=== PATIENT | female | born 1955 | race Caucasian/White ===

== ENCOUNTER → 2020-12-14 13:45 | Outpatient (CLI) | payer MEDICARE | END | disposition home or self-care (01) | LOC: D.US 12-12 15:00 | PROVIDERS: ATTEND Family Medicine | DX: I73.9 Peripheral vascular disease, unspecified (principal) ==

== ENCOUNTER → 2020-12-26 14:45 | Outpatient (CLI) | payer MEDICARE | END | disposition home or self-care (01) | LOC: D.RAD 14:45 | PROVIDERS: ATTEND Family Medicine | DX: M20.62 Acquired deformities of toe(s), unspecified, left foot (principal) ==

== ENCOUNTER 2021-03-04 06:33 | Inpatient (IN) | payer MEDICARE, MEDICAID ==
[~2021-03-04] VITALS: Ht 175.3 cm; Wt 63.5 kg
[2021-03-04] MEDS ORDERED: LISINOPRIL5 MG PO (06:47)
[2021-03-04] MEDS ORDERED: ZANAFLEX4 MG PO (06:48)
[2021-03-04] MEDS ORDERED: COREG6.25 MG PO (06:48)
[2021-03-04] MEDS ORDERED: NAPROSYN500 MG PO (06:48)
[2021-03-04] MEDS ORDERED: CELEXA10 MG PO (06:49)
--- NOTE | 2021-03-04 07:12 | NUR ---
REPORT TO MYNOR WATSON
--- NOTE | 2021-03-04 07:48 | NUR ---
PLACED A PIV IN LEFT HAND, 20G, 1 STICK, PATIENT TOLERATED WELL. CALL LIGHT WITHIN REACH AND BED IN LOWEST LOCKED POSITION. SIDE RAILS UP. PATIENT REQUESTED DEPENDS, GIVEN, PATIENT STATES THE NEXT TIME SHE GETS UP SHE WILL PUT THEM ON. PILLOW ALSO REQUESTED AND GIVEN.
[2021-03-04 07:54] LABS: CALC OSMOLALITY 243 mosm/kg (275-300); CALCIUM 8.1 mg/dL (8.5-10.1); CARBON DIOXIDE 24.6 mmol/L (21.0-32.0); CHLORIDE - SERUM 89 mmol/L (98-107); CREATININE - SERUM 0.8 mg/dL (0.6-1.3); GLUCOSE 151 mg/dL (74-106); POTASSIUM - SERUM 3.3 mmol/L (3.5-5.1); SODIUM 121 mmol/L (136-145); UREA NITROGEN 5 mg/dL (7-18); eGFR NON AFRICAN AMERICAN 76 mL/min (90-120)
[2021-03-04 07:58] LABS: BASOPHILS 0.6 % (0-2); EOSINOPHILS 2.6 % (0-7); HEMATOCRIT 29.4 % (36.0-48.0); HEMOGLOBIN 10.2 g/dL (12-16); LYMPHOCYTES 13.6 % (15-50); MCH 31.1 pg (26.0-34.0); MCHC 34.6 g/dL (31.0-37.0); MCV 89.8 fL (80.0-100.0); MEAN PLATELET VOLUME 6.5 fL (7.4-10.4); MONOCYTES 14.3 % (2-11); NEUTROPHILS 68.9 % (40-80); PLATELET COUNT 129 10x3/uL (130-400); RBC 3.27 10x6/uL (4.00-5.40)
[2021-03-04 07:59] LABS: ALBUMIN 2.7 g/dL (3.4-5.0); ALKALINE PHOSPHATASE 64 U/L (30-120); ALT (SGPT) 24 U/L (10-68); BILIRUBIN - TOTAL 0.57 mg/dL (0.2-1.3); PROTEIN - SERUM 6.5 g/dL (6.4-8.2)
--- NOTE | 2021-03-04 15:00 | NUR ---
RECEIVED TO ROOM 2227 VIA FROM ER. A/O X3. NO C/O AT THIS TIME. SKIN INTACT WITHOUT REDNESS. BRUISING NOTED TO LEFT SIDE OF FACE. DENIES NEEDS.
[2021-03-04 15:57] VITALS: BP 153/109; BMI 20.7
--- NOTE | 2021-03-04 19:41 | NUR ---
ATE ALL OF SUPPER. NO CHANGES NOTED. DENIES NEEDS.
[2021-03-04 20:00] VITALS: BP 163/82
--- NOTE | 2021-03-04 23:30 | NUR ---
I have reviewed this patient and I concur with the Shift Assessment completed by the Licensed Practical Nurse today this shift.
[2021-03-05] VITALS: BP 181/92
[2021-03-05 04:00] VITALS: BP 182/93
[2021-03-05 06:18] LABS: BASOPHILS 0.1 % (0-2); EOSINOPHILS 0 % (0-7); HEMATOCRIT 29.4 % (36.0-48.0); HEMOGLOBIN 10.2 g/dL (12-16); LYMPHOCYTES 12.1 % (15-50); MCH 31.8 pg (26.0-34.0); MCHC 34.7 g/dL (31.0-37.0); MCV 91.6 fL (80.0-100.0); MEAN PLATELET VOLUME 7.1 fL (7.4-10.4); MONOCYTES 7.7 % (2-11); NEUTROPHILS 80.1 % (40-80); PLATELET COUNT 139 10x3/uL (130-400); RBC 3.21 10x6/uL (4.00-5.40); RDW 17.5 % (11.5-14.5); WBC 5.5 10x3/uL (4.8-10.8)
[2021-03-05 06:51] LABS: ALBUMIN 2.8 g/dL (3.4-5.0); ANION GAP 13.6 mmol/L (8-16); BILIRUBIN - TOTAL 0.48 mg/dL (0.2-1.3); CALCIUM 7.8 mg/dL (8.5-10.1); CARBON DIOXIDE 23.7 mmol/L (21.0-32.0); CREATININE - SERUM 0.9 mg/dL (0.6-1.3); MAGNESIUM - SERUM 1.4 mg/dL (1.8-2.4); POTASSIUM - SERUM 3.3 mmol/L (3.5-5.1); PROTEIN - SERUM 6.5 g/dL (6.4-8.2)
--- NOTE | 2021-03-05 08:06 | NUR ---
AWAKE AND ALERT. ORIENTED X3. NO C/O AT THIS TIME. LUNGS ARE CLEAR BILATERALLY, NO COUGH NOTED. SKIN IS INTACT WITHOUT REDNESS BUT LARGE BRUISED AREAS NOTED TO LEFT SIDE OF FACE. IV TO LEFT HAND IS PATENT WITHOUT REDNESS AT INSERTION SITE. DENIES NEEDS.
[2021-03-05 08:27] VITALS: BP 156/82
--- NOTE | 2021-03-05 09:00 | NUR ---
ATE MOST OF BREAKFAST. TOOK AM MEDS WITHOUT DIFFICULTY. DENIES NEEDS.
--- NOTE | 2021-03-05 11:00 | NUR ---
UP TO BR PER SELF. DISCUSSED NEED TO CALL FOR ASSIST WITH AMBULATION. BED ALARM ON AT THIS TIME.
--- NOTE | 2021-03-05 12:30 | NUR ---
HAD A LIGHT LUNCH SERVED IN ROOM. ATE ALL OF TRAY.
[2021-03-05 13:02] VITALS: BP 142/85
--- NOTE | 2021-03-05 15:00 | NUR ---
SITTING UP IN BED WATCHING TV. DENIES NEEDS.
[2021-03-05 17:27] VITALS: BP 176/100
--- NOTE | 2021-03-05 19:43 | NUR ---
ATE MOST OF SUPPER UP TO BR WITH ONE PERSON SBA. VOIDED WITHOUT DIFFICULTY. DENIES NEEDS. NO CHANGES NOTED.
[2021-03-05 20:00] VITALS: BP 150/78
--- NOTE | 2021-03-05 21:00 | NUR ---
UP IN CHAIR AT BEDSIDE. PULLED IV OUT. RESITED TO RFA X 1 ATTEMPT. TOLERATED WELL. CONTINUES TO HAVE BRUISING AND EDEMA TO LEFT SIDE OF FACE. DENIES DISCOMFORT AT PRESENT.
[2021-03-06] VITALS: BP 175/87
--- NOTE | 2021-03-06 02:08 | NUR ---
I have reviewed this patient and I concur with the Shift Assessment completed by the Licensed Practical Nurse today this shift.
[2021-03-06 04:00] VITALS: BP 167/90
[2021-03-06 06:06] LABS: BASOPHILS 0.3 % (0-2); EOSINOPHILS 0 % (0-7); HEMATOCRIT 30.7 % (36.0-48.0); HEMOGLOBIN 10.2 g/dL (12-16); LYMPHOCYTES 14.1 % (15-50); MCHC 33.2 g/dL (31.0-37.0); MCV 93.5 fL (80.0-100.0); MEAN PLATELET VOLUME 7.1 fL (7.4-10.4); MONOCYTES 9.8 % (2-11); NEUTROPHILS 75.8 % (40-80); PLATELET COUNT 162 10x3/uL (130-400); RBC 3.28 10x6/uL (4.00-5.40); RDW 17.9 % (11.5-14.5)
[2021-03-06 06:20] LABS: WBC 7.3 10x3/uL (4.8-10.8)
[2021-03-06 06:52] LABS: ALBUMIN 3.2 g/dL (3.4-5.0); ANION GAP 13.9 mmol/L (8-16); BILIRUBIN - TOTAL 0.53 mg/dL (0.2-1.3); CALCIUM 8.1 mg/dL (8.5-10.1); CARBON DIOXIDE 20.5 mmol/L (21.0-32.0); POTASSIUM - SERUM 4.4 mmol/L (3.5-5.1)
[2021-03-06 09:25] VITALS: BP 141/77
[2021-03-06 12:45] VITALS: BP 169/95
--- NOTE | 2021-03-06 12:50 | NUR ---
I have reviewed this patient and I concur with the Shift Assessment completed by the Licensed Practical Nurse today this shift.
[2021-03-06 14:53] VITALS: Ht 175.3 cm; Wt 63.5 kg
[2021-03-06 15:46] VITALS: BP 191/96
--- NOTE | 2021-03-06 16:45 | NUR ---
PATIENT ADMINISTERED PRN ATIVIAN AT 1630PRE DT PROTOCOL, AFTER ADMINISTRATION PATIENT BECAME VERY CONFUSED AND HALUCINATED, CALLED AND SPOKE TO ANNAMARIE FOR NEW ORDERS
--- NOTE | 2021-03-06 19:37 | NUR ---
CHARITO KHAN AT BEDSIDE ASSISTING PATIENT TO AND FROM RESTROOM.
[2021-03-06 20:00] VITALS: BP 193/103
--- NOTE | 2021-03-06 21:29 | NUR ---
ADMINISTERED MEDS PER ORDERS. PATIENT MATA WELL. ENCOURAGED PATIENT TO CALL WITH NEEDS.
--- NOTE | 2021-03-06 23:09 | NUR ---
ARLENE DE LUNA APRN IN REGARDS TO BP OF 220/136 AND PULSE 115.
[2021-03-07] VITALS (7 sets, daily range): BP systolic 143–220; BP diastolic 86–136
--- NOTE | 2021-03-07 03:03 | NUR ---
UPON ENTERING THE PATIENT'S ROOM, THE PATIENT IS SITTING IN BED WITH A BAG IN HER LAP. AFTER ADMINISTERING PATIENT'S TYLENOL, I NOTICED A WHITE PILL ON THE PATIENT'S CHEST. IN THE BAG WAS A SMALL BOX WITH MULTIPLE PILL BOTTLES INCLUDING TIZANIDINE. THE PILL ON THE PATIENT'S CHEST WAS A TIZANIDINE. I ASKED THE PATIENT IF SHE HAD TAKEN ANY OF THE MEDICATION AND SHE STATED "NO. " I EXPLAINED TO THE PATIENT THAT SHE CAN'T TAKE ANY OF HER HOME MEDICATION AND TOOK THE BOX OF MEDICATIONS. I EXPLAINED TO THE PATIENT THAT THE MEDICATION WOULD BE RETURNED TO HER WHEN SHE IS DISCHARGED.
--- NOTE | 2021-03-07 03:07 | NUR ---
NOTIFIED YUNG DE LUNA THAT I FOUND THE PATIENT WITH A BOX OF MEDICATION BOTTLES IN HE POSSESSION.
--- NOTE | 2021-03-07 04:07 | NUR ---
SPOKE WITH YUNG DE LUNA IN REGARDS TO PATIENT BP 214/113. ANNAMARIE PROVIDED ORDER FOR CLONIDINE 0.2 ONE TIME.
[2021-03-07 06:58] LABS: INR 1.21 (0.85-1.17); PROTIME 14.2 SECONDS (11.6-15.0)
[2021-03-07 07:01] LABS: ALBUMIN 3.3 g/dL (3.4-5.0); BILIRUBIN - TOTAL 0.58 mg/dL (0.2-1.3); CALCIUM 8.3 mg/dL (8.5-10.1); CREATININE - SERUM 0.9 mg/dL (0.6-1.3); MAGNESIUM - SERUM 2.2 mg/dL (1.8-2.4); PROTEIN - SERUM 7.1 g/dL (6.4-8.2)
[2021-03-07 07:02] LABS: ANION GAP 10.3 mmol/L (8-16); CARBON DIOXIDE 25.7 mmol/L (21.0-32.0)
[2021-03-07 07:05] LABS: BASOPHILS 0.1 % (0-2); EOSINOPHILS 0 % (0-7); HEMOGLOBIN 10.7 g/dL (12-16); LYMPHOCYTES 11.1 % (15-50); MCH 31.2 pg (26.0-34.0); MCHC 33.6 g/dL (31.0-37.0); MCV 92.9 fL (80.0-100.0); MEAN PLATELET VOLUME 6.5 fL (7.4-10.4); MONOCYTES 8.9 % (2-11); NEUTROPHILS 79.9 % (40-80); PLATELET COUNT 183 10x3/uL (130-400); RBC 3.44 10x6/uL (4.00-5.40); WBC 6.4 10x3/uL (4.8-10.8)
--- NOTE | 2021-03-07 14:37 | NUR ---
PT IS CURRENTLY IN THE ER A PT. WILL TRY TO ALLOW VISITATION WHEN ABLE.
--- NOTE | 2021-03-07 20:00 | NUR ---
SITTING UP IN CHAIR AT BEDSIDE, CONFUSED AND AGITATED, YELLING AND CUSING AT ANYONE SHE SEES, DEMANDING TO LEAVE, BECOMES COMBATIVE WHEN ATTEMPTING TO REDIRECT OR EXPLAIN THAT SHE IS IN HOSPITAL, PREVIOUS NURSE SPOKE WITH ANNAMARIE INTERIANO WITH ORDERS RECIEVED TO GIVE ANDIE ARMENTA ALARM IN PLACE IN CHAIR AND ON BED WILL MONITOR
--- NOTE | 2021-03-07 22:00 | NUR ---
LAMAR CALLED TO ROOM DUE TO PT HAS BECOME MORE AGRESSIVE AND TRYING TO LEAVE ROOM, ATTEMPTED TO BITE AND HIT SECURITY AND NURSES, ANNAMARIE INTERIANO CALLED TO SEE PT GEODON 10MG IM ORDERED NOW
--- NOTE | 2021-03-07 23:00 | NUR ---
ANNAMARIE HERE TO SEE PT, ORDERS RECIEVED FOR SOFT WRIST RESTRAINTS AND TO TRANSFER TO ICU, HS NOTIFIED AND SPOKE WITH ANNAMARIE, NO AVAILABLE BEDS IN ICU, SOFT WRIST RESTRAINTS PLACED AND OCAMPO MONITOR PLACED IN ROOM, CONTINUES YELLING AND ATTEMPTING TO GET OUT OF BED
[2021-03-08] VITALS: BP 199/110
--- NOTE | 2021-03-08 01:31 | NUR ---
@ 2300, SPOKE WITH ANNAMARIE WILSON APN ABOUT PT. INFORMED ANNAMARIE THAT A BED CAN BE OBTAINED IN ICU BY MOVING ANOTHER PT OUT TO HAVE A ROOM FOR THIS PT. JAYDON CHOOSE TO WAIT FOR MEDS TO TAKE EFFECT. HE DID NOT WANT TO MOVE PT AT THIS TIME.
--- NOTE | 2021-03-08 02:00 | NUR ---
IV LEAKING DC'D ATTEMPTED TO RESTART WITHOUT SUCESS, REMAING AWAKE AND ATTEMPTING TO GET OUT OF BED CALLING OUT VARIOUS NAMES FOR HELP, DOES NOT BELIEV SHE IS IN HOSPITAL
--- NOTE | 2021-03-08 03:30 | NUR ---
ANNAMARIE NOTIFIED OF CONTINUED ELEVATED BP ORDER RECIEVED FOR CLONDINE PO, PT REFUSED
--- NOTE | 2021-03-08 03:30 | NUR ---
ADRYAN LOWE FROM ICU ATTEMPTING MIDLINE, ANNAMARIE NOTIFIED OF PT REFUSING PO CLONDINE, ORDER RECIEVED FOR LOPRESSOR IV
[2021-03-08 04:00] VITALS: BP 211/113
--- NOTE | 2021-03-08 04:39 | NUR ---
UNABLE TO GET MIDLINE IV ACCESS, PRINCE MARTINEZ RN FINALLY GOT TO TAKE PO CLONDINE, BP REMAINS 215/108, REMAINS RESTLESS IN BED SITTING UP SWING LEGS OF SIDE OF BED WITH RAILS UP, CONTINUES TO BELIEVE SHE IS AT HOME
--- NOTE | 2021-03-08 05:50 | NUR ---
PT IS FINALLY CALM AND RESTING.
--- NOTE | 2021-03-08 06:42 | NUR ---
SNORING, AROUSED EASILY MORE COPERATIVE AT THIS TIME, BP 159/99 AT THIS TIME
[2021-03-08 06:55] LABS: BASOPHILS 0.1 % (0-2); EOSINOPHILS 0 % (0-7); HEMATOCRIT 31.5 % (36.0-48.0); HEMOGLOBIN 10.5 g/dL (12-16); LYMPHOCYTES 15.2 % (15-50); MCH 31.5 pg (26.0-34.0); MCHC 33.4 g/dL (31.0-37.0); MCV 94.5 fL (80.0-100.0); MEAN PLATELET VOLUME 6.3 fL (7.4-10.4); MONOCYTES 17.6 % (2-11); NEUTROPHILS 67.1 % (40-80); PLATELET COUNT 192 10x3/uL (130-400); RBC 3.33 10x6/uL (4.00-5.40); RDW 18.8 % (11.5-14.5)
[2021-03-08 06:57] LABS: INR 1.23 (0.85-1.17); PROTIME 14.3 SECONDS (11.6-15.0)
[2021-03-08 07:09] LABS: ALBUMIN 3.1 g/dL (3.4-5.0); ANION GAP 10.5 mmol/L (8-16); BILIRUBIN - TOTAL 0.52 mg/dL (0.2-1.3); CALCIUM 8.3 mg/dL (8.5-10.1); CARBON DIOXIDE 25.9 mmol/L (21.0-32.0); CREATININE - SERUM 0.9 mg/dL (0.6-1.3); MAGNESIUM - SERUM 2.3 mg/dL (1.8-2.4); POTASSIUM - SERUM 3.4 mmol/L (3.5-5.1); PROTEIN - SERUM 6.6 g/dL (6.4-8.2)
[2021-03-08 07:38] LABS: WBC 8.4 10x3/uL (4.8-10.8)
[2021-03-08 07:41] VITALS: BP 125/71
[2021-03-08 11:03] VITALS: BP 164/88
--- NOTE | 2021-03-08 12:02 | NUR ---
ASSISTED PATIENT TO RESTROOM, LEFT RESTRAINTS OFF PATIENT SHE HAS BEEN SLEEPING ALL MORNING, PATIENT STATED SHE WILL NOT TRY TO HIT OR BITE ME TODAY, WILL LEAVE RESTRAINTS OFF WHILE PATIENT IS CALM AND ASLEEP. COMPLETE LINEN CHANGE WHILE PATIENT IN RESTROOM AND CHANGED GOWN WELL, CONTINUE WITH PLAN OF CARE
--- NOTE | 2021-03-08 12:32 | NUR ---
REHAB PRESCREEN RECEIVED. PATIENT IS A MANAGED MEDICARE AND WILL REQUIRE TWO TYPES OF THERAPY IN ORDER TO PROCEED. OCCUPATIONAL THERAPY EVAL IS PENDING. WE WILL LOOK BACK LATER AND IF IN, WILL DO THE CHART REVIEW TO SEE IF SHE MEETS CRITERIA. IF SHE MEETS CRITERIA AND WANTS TO COME TO INPATIENT REHAB, WE WILL SUBMIT FOR AUTH. THANK YOU FOR THIS REFERRAL. DANITZA MUKHERJEE RN CLINICAL LIAISON, INPATIENT [facility].
--- NOTE | 2021-03-08 13:23 | NUR ---
PATIENT IV IN RT ARM, 22G SECOND STICK, PATIENT TOLERATED WELL, EXPLAINED TO HRE WHAT I WAS DOING. NO OTHER NEEDS AT THIS TIME, CONTINUE WITH PLAN OF CARE
--- NOTE | 2021-03-08 16:22 | NUR ---
I have reviewed this patient and I concur with the Shift Assessment completed by the Licensed Practical Nurse today this shift.
[2021-03-08 17:00] VITALS: BP 149/76
--- NOTE | 2021-03-08 18:19 | NUR ---
WOKE PATIENT AND OFFERED DINNER, PATIENT STATED SHE IS TIRED AND WANTS TO SLEEP, ASKED FOR TRAY TO BE LEFT IN ROOM FOR PATIENT, CONTINUE WITH PLANOF CARE
[2021-03-08 20:00] VITALS: BP 156/81
[2021-03-09] VITALS: BP 178/100
[2021-03-09 02:30] VITALS: BP 205/103
--- NOTE | 2021-03-09 03:05 | NUR ---
ANNAMARIE INTERIANO NOTIFIED OF BP REMAINING ELEVATED AT 205/103, RECIEVED APRESSOLINE AT 2330, ORDER RECIEVED FOR ONE TIME 0.2 CLONDINE PO
[2021-03-09 04:00] VITALS: BP 183/110
[2021-03-09 05:22] LABS: INR 1.19 (0.85-1.17)
[2021-03-09 05:24] VITALS: BP 157/73
[2021-03-09 05:28] LABS: BASOPHILS 0.1 % (0-2); EOSINOPHILS 0.1 % (0-7); HEMATOCRIT 31.4 % (36.0-48.0); HEMOGLOBIN 10.4 g/dL (12-16); MCH 31.6 pg (26.0-34.0); MCHC 33.2 g/dL (31.0-37.0); MCV 95.1 fL (80.0-100.0); MEAN PLATELET VOLUME 6.4 fL (7.4-10.4); MONOCYTES 4.7 % (2-11); NEUTROPHILS 91.1 % (40-80); PLATELET COUNT 176 10x3/uL (130-400); RDW 18.9 % (11.5-14.5); WBC 7.8 10x3/uL (4.8-10.8)
[2021-03-09 05:42] LABS: ALBUMIN 2.8 g/dL (3.4-5.0); BILIRUBIN - TOTAL 0.5 mg/dL (0.2-1.3); CALCIUM 7.7 mg/dL (8.5-10.1); CARBON DIOXIDE 26.5 mmol/L (21.0-32.0); MAGNESIUM - SERUM 2.1 mg/dL (1.8-2.4); POTASSIUM - SERUM 3.5 mmol/L (3.5-5.1); PROTEIN - SERUM 6.2 g/dL (6.4-8.2)
--- NOTE | 2021-03-09 07:52 | NUR ---
AWAKE AND ALERT. ORIENTED X3 THIS AM. LUNGS ARE CLEAR BILATERALLY, NO COUGH NOTED. SKIN IS INTACT WITHOUT REDNESS. BRUISED AREAS TO FACE NOTED. IV TO RIGHT FOREARM IS PATENT WITHOUT REDNESS AT INSERTION SITE. DENIES NEEDS.
--- NOTE | 2021-03-09 08:54 | NUR ---
PATIENTS OT EVTAMIA IS STILL PENDING, BUT JUST LOOKING AT HER PT EVTAMIA, SHE IS SBA WITH FUNCTIONAL MOBILITY. SHE IS NOTED TO BE A LITTLE IMPULSIVE, BUT WAS ABLE TO AMBULATE 250, AGAIN WITH SBA. PATIENT UNFORTUNATELY IS TOO HIGH FUNCTIONING FOR INPATIENT REHAB. IF POST ACUTE CARE IS NEEDED, [facility] MAY APPROVE A SNF IF PATIENT WILLING, BUT LOOKS LIKE SHE WOULD DO GOOD WITH HOME HEALTH AND PHYSICAL THERAPY. I HAVE DISCUSSED HER WITH MYNOR SALVADOR CM. AGAIN, THANK YOU FOR THE REFERRAL. DANITZA MUKHERJEE RN CLINICAL LIAISON, INPATIENT REHAB.
--- NOTE | 2021-03-09 09:00 | NUR ---
ATE MOST OF BREAKFAST. TOOK AM MEDS WITHOUT DIFFICULTY. UP TO BR WITH ONE PERSON MIN ASSIST. VOIDED WITHOUT DIFFICUTLY.
[2021-03-09 09:11] VITALS: BP 139/74
[2021-03-09 11:32] VITALS: BP 157/91
--- NOTE | 2021-03-09 12:30 | NUR ---
LUNCH SERVED IN ROOM. FEEDS SELF.
--- NOTE | 2021-03-09 13:35 | NUR ---
Nutrition follow-up: Diet order: low sodium PO intake 100% of most meals labs reviewed Wt: 140# PO intake good at this time; possible d/c soon RDN will follow-up on pts progress in 3-5 days.
[2021-03-09] MEDS ORDERED: MEDROL DOSE PACK4 MG PO (14:26)
--- NOTE | 2021-03-09 16:00 | NUR ---
DISCHARGED TO HOME WITH FAMILY AMBULATORY. FOUND WITH IV OUT CATHETER INTACT. DISCHARGE INSTRUCTIONS GIVEN BOTH VERBALLY AND WRITTEN. ALL QUESTIONS ANSWERED. PATIENT AND FAMILY VERBALIZED UNDERSTANDING OF SAME. NO NEW PRESCRPITIONS NEEDED. ALL BELONGINGS WITH PATIENT.
--- NOTE | 2021-03-12 18:18 | MORECARE ---
CASE MANAGEMENT DISCHARGE SUMMARY PATIENT: TABITHA SAGASTUME UNIT: [id number] ADM DATE: 03/06/21 AGE: 65 : 53 SEX: F [facility] AUTHOR: JONY,DOC PHYSICIAN: REFERRING PHYSICIAN: COLETTE BAÑUELOS MD DATE OF SERVICE: 03/12/21 Case Management Discharge Planning Summary DCP REVIEW SUMMARY ANTICIPATED D/C DATE: EXPECTED LOS : CASE STATUS: DCP Complete INITIAL REVIEW: 03/04/2021 INITIAL REVIEWER: Bonnie Alvarez FINAL DISCHARGE DISPOSITION: : FINAL REVIEWER: FINAL REVIEW DATE: DCP [employer] QUESTION: ANSWER : PATIENT: TABITHA SAGASTUME ENCOUNTER: [id number] MEDICAL RECORD#: [id number] ADMISSION DATE: 03/06/2021 DISCHARGE DATE: 03/09/2021 ATTENDING MD: DIAMOND: AGE: 65 MARITAL STATUS: P DC PLAN ID: [id number] FACILITY: [facility] PRINTED ON: 03/12/21 18:18 CT All edits/amendments must be made on the electronic document DICTATION DATE: 03/12/211817 MACHINE SHOP INSPECTOR: DM 03/12/211817 RPT#: [id number] DC DATE:03/09/21 STATUS: DIS IN [facility] [address] [place] [address] END OF REPORT
== END 2021-03-09 16:00 | disposition home or self-care (01) | DRG 916 ==
LOC: D.ER 06:33 → OBSVTIME 08:31 → D.EDHOLD 08:31 → D.MS 08:31 → D.EDHOLD 08:31 → D.MS 13:12
PROVIDERS: Family Medicine; ADMIT Family Medicine; ATTEND Family Medicine
DX: T78.3XXA Angioneurotic edema, initial encounter (principal); E87.1 Hypo-osmolality and hyponatremia; G72.81 Critical illness myopathy; S00.83XA Contusion of other part of head, initial encounter; W19.XXXA Unspecified fall, initial encounter; E87.6 Hypokalemia; I10 Essential (primary) hypertension; D64.9 Anemia, unspecified; D69.6 Thrombocytopenia, unspecified; Z72.89 Other problems related to lifestyle; Z91.81 History of falling